=== PATIENT | male | born 2000 | race Hispanic/Latino ===

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

== ENCOUNTER 2021-05-06 11:42 | Inpatient (IN) | payer OTHER ==
[~2021-05-06] VITALS: Ht 172.7 cm; Wt 61.6 kg
[2021-05-06 12:36] LABS: HEMATOCRIT 44.2 % (42.0-52.0); HEMOGLOBIN 15.1 g/dl (13.5-17.5); MEAN CORPUSCULAR HEMOGLOBIN 29.7 pg (27.0-33.0); MEAN CORPUSCULAR HGB CONC 34.2 g/dl (32.0-36.5); PLATELET COUNT, AUTOMATED 253 10^3/uL (150-450); RED BLOOD COUNT 5.08 10^6/uL (4.30-6.10); WHITE BLOOD COUNT 6.2 10^3/uL (4.0-10.0)
[2021-05-06 13:24] LABS: RSV AMPLIFICATION NEGATIVE (NEGATIVE)
[2021-05-06 13:25] LABS: ACETAMINOPHEN LEVEL < 2.0 UG/ML (10.0-30.0); ALBUMIN 4.3 GM/DL (3.2-5.2); ALT/SGPT 22 U/L (12-78); BILIRUBIN,DIRECT 0.3 MG/DL (0.0-0.2); BILIRUBIN,TOTAL 1.3 MG/DL (0.2-1.0); BLOOD UREA NITROGEN 12 MG/DL (7-18); CALCIUM LEVEL 9.3 MG/DL (8.5-10.1); CARBON DIOXIDE LEVEL 28 MEQ/L (21-32); CHLORIDE LEVEL 104 MEQ/L (98-107); CREATININE FOR GFR 0.83 MG/DL (0.70-1.30); ETHYL ALCOHOL (ETHANOL) 0.004 % (0.000-0.010); GLUCOSE, FASTING 86 MG/DL (70-100); SALICYLATE LEVEL < 1.7 MG/DL (5.0-30.0); SODIUM LEVEL 139 MEQ/L (136-145); THYROID STIMULATING HORMONE 0.635 uIU/ML (0.463-3.98); TOTAL PROTEIN 7.6 GM/DL (6.4-8.2)
[2021-05-06 17:56] LABS: AMPHETAMINES LEVEL URINE NEGATIVE (NEGATIVE); BARBITURATES URINE NEGATIVE (NEGATIVE); BENZODIAZEPINES URINE NEGATIVE (NEGATIVE); CANNABINOIDS URINE POSITIVE (NEGATIVE); COCAINE METABOLITE URINE NEGATIVE (NEGATIVE); METHADONE URINE NEGATIVE (NEGATIVE); OPIATES URINE NEGATIVE (NEGATIVE); PHENCYCLIDINE URINE NEGATIVE (NEGATIVE)
[2021-05-06] MEDS ORDERED: MAALOX 30 ML SUSP *UDC PO PRN (18:00)
[2021-05-06] MEDS ORDERED: NICOTINE 21MG/24HR 1 EA TRANSDERMAL TD PRN (18:00)
[2021-05-06] MEDS ORDERED: OLANZapine ORAL DISINTEGRATING TAB 5MG PO PRN (18:00)
[2021-05-06] MEDS ORDERED: ACETAMINOPHEN TAB 650MG DOSE (2X325MG) PO PRN (18:00)
[2021-05-06] MEDS ORDERED: MOM 30ML SUSPENSION UDC PO PRN (18:00)
[2021-05-06] MEDS ORDERED: HOME MED LIST COMPLETE! XX SCH (18:30)
[2021-05-06 20:15] VITALS: BP 146/87
[2021-05-06] MEDS: traZODone 50 MG TAB PO PRN (21:39)
[2021-05-06] MEDS: risperiDONE 1 MG TAB PO SCH (21:39)
[2021-05-07 06:28] VITALS: BP 135/68
[2021-05-07] MEDS: SERTRALINE HCL 50 MG TAB PO SCH (09:10)
[2021-05-07 16:14] VITALS: BP 136/66
[2021-05-07] MEDS: risperiDONE 1 MG TAB PO SCH (20:46)
[2021-05-08 06:37] VITALS: BP 117/58
[2021-05-08 08:07] LABS: CHOLESTEROL RISK RATIO 3.129 (<5)
[2021-05-08] MEDS: SERTRALINE HCL 50 MG TAB PO SCH (08:26)
[2021-05-08 17:49] VITALS: BP 133/86
[2021-05-08] MEDS: risperiDONE 1 MG TAB PO SCH (20:01)
[2021-05-09 06:49] VITALS: BP 124/64
[2021-05-09] MEDS: SERTRALINE HCL 50 MG TAB PO SCH (08:53)
[2021-05-09 17:49] VITALS: BP 148/84
[2021-05-09] MEDS: traZODone 50 MG TAB PO PRN (20:56)
[2021-05-09] MEDS: risperiDONE 1 MG TAB PO SCH (20:56)
[2021-05-10 07:02] VITALS: BP 133/61
[2021-05-10] MEDS: SERTRALINE HCL 50 MG TAB PO SCH (08:49)
[2021-05-10] MEDS ORDERED: TRAZ-252 PO (11:15)
[2021-05-10] MEDS ORDERED: SERT50TA29 PO (11:15)
[2021-05-10] MEDS ORDERED: RISP-8 PO (11:15)
[2021-05-10] MEDS ORDERED: NICO21PAT TD (11:15)
== END 2021-05-10 15:17 | disposition home or self-care (01) | DRG 885 ==
LOC: M ED 11:42 → M ED INP 18:00 → M PSY 20:01
PROVIDERS: ADMIT Student in an Organized Health Care Education/Training Program; ATTEND Student in an Organized Health Care Education/Training Program
DX: F33.1 Major depressive disorder, recurrent, moderate (principal); R45.851 Suicidal ideations; F12.90 Cannabis use, unspecified, uncomplicated; F60.89 Other specific personality disorders; Z91.51 Personal history of suicidal behavior; Z63.0 Problems in relationship with spouse or partner; Z56.6 Other physical and mental strain related to work; Z20.822 Contact with and (suspected) exposure to COVID-19

== ENCOUNTER 2021-05-23 14:34 | Emergency (ER) | payer OTHER ==
[~2021-05-23] VITALS: Ht 172.7 cm; Wt 63.6 kg
[~2021-05-23 14:34] MED LIST changes: +NICO21PAT TD
[2021-05-23 16:47] LABS: HEMATOCRIT 43.3 % (42.0-52.0); HEMOGLOBIN 14.6 g/dl (13.5-17.5); MEAN CORPUSCULAR HEMOGLOBIN 30.2 pg (27.0-33.0); MEAN CORPUSCULAR HGB CONC 33.7 g/dl (32.0-36.5); MEAN CORPUSCULAR VOLUME 89.6 fl (80.0-96.0); PLATELET COUNT, AUTOMATED 244 10^3/uL (150-450); RED BLOOD COUNT 4.83 10^6/uL (4.30-6.10); WHITE BLOOD COUNT 7.5 10^3/uL (4.0-10.0)
[2021-05-23 16:54] LABS: AMPHETAMINES LEVEL URINE NEGATIVE (NEGATIVE); BARBITURATES URINE NEGATIVE (NEGATIVE); BENZODIAZEPINES URINE NEGATIVE (NEGATIVE); CANNABINOIDS URINE POSITIVE (NEGATIVE); COCAINE METABOLITE URINE NEGATIVE (NEGATIVE); METHADONE URINE NEGATIVE (NEGATIVE); OPIATES URINE NEGATIVE (NEGATIVE); PHENCYCLIDINE URINE NEGATIVE (NEGATIVE)
[2021-05-23 17:04] LABS: RSV AMPLIFICATION NEGATIVE (NEGATIVE)
[2021-05-23 17:08] LABS: ACETAMINOPHEN LEVEL < 2.0 UG/ML (10.0-30.0); ALBUMIN 4.5 GM/DL (3.2-5.2); ALT/SGPT 25 U/L (12-78); BILIRUBIN,DIRECT 0.2 MG/DL (0.0-0.2); BILIRUBIN,TOTAL 0.8 MG/DL (0.2-1.0); BLOOD UREA NITROGEN 10 MG/DL (7-18); CARBON DIOXIDE LEVEL 30 MEQ/L (21-32); CHLORIDE LEVEL 105 MEQ/L (98-107); CREATININE FOR GFR 0.89 MG/DL (0.70-1.30); ETHYL ALCOHOL (ETHANOL) < 0.003 % (0.000-0.010); GLUCOSE, FASTING 89 MG/DL (70-100); POTASSIUM SERUM 3.6 MEQ/L (3.5-5.1); SALICYLATE LEVEL < 1.7 MG/DL (5.0-30.0); SODIUM LEVEL 139 MEQ/L (136-145); THYROID STIMULATING HORMONE 0.796 uIU/ML (0.463-3.98); TOTAL PROTEIN 7.8 GM/DL (6.4-8.2)
[2021-05-23] MEDS ORDERED: ACETAMINOPHEN TAB 650MG DOSE (2X325MG) PO ONE (17:15)
[2021-05-23] MEDS ORDERED: SERT50TA29 PO (19:25)
[2021-05-23] MEDS ORDERED: RISP-8 PO (19:25)
[2021-05-23] MEDS ORDERED: TRAZ-186 PO (19:25)
[2021-05-23] MEDS ORDERED: HOME MED LIST COMPLETE! XX SCH (19:30)
[2021-05-23] MEDS ORDERED: traZODone 50 MG TAB PO ONE (20:50)
[2021-05-23] MEDS ORDERED: risperiDONE 1 MG TAB PO ONE (20:50)
[2021-05-24] MEDS ORDERED: SERTRALINE HCL 50 MG TAB PO SCH (09:00)
[2021-05-24 18:28] VITALS: BP 137/69
[2021-05-24] MEDS ORDERED: traZODone 50 MG TAB PO SCH (21:00)
[2021-05-24] MEDS ORDERED: risperiDONE 1 MG TAB PO SCH (21:00)
[2021-05-25] MEDS ORDERED: SERTRALINE HCL 50 MG TAB PO SCH (09:00)
== END 2021-05-24 18:48 ==
LOC: M ED 14:34
DX: R45.851 Suicidal ideations (principal); F41.9 Anxiety disorder, unspecified; Z91.51 Personal history of suicidal behavior; Z79.899 Other long term (current) drug therapy

== ENCOUNTER 2021-07-17 15:38 | Emergency (ER) | payer OTHER ==
[~2021-07-17] VITALS: Ht 172.7 cm; Wt 61.4 kg
[2021-07-17 16:45] LABS: HEMATOCRIT 47.2 % (42.0-52.0); HEMOGLOBIN 16.1 g/dl (13.5-17.5); MEAN CORPUSCULAR HEMOGLOBIN 29.9 pg (27.0-33.0); MEAN CORPUSCULAR HGB CONC 34.1 g/dl (32.0-36.5); MEAN CORPUSCULAR VOLUME 87.7 fl (80.0-96.0); PLATELET COUNT, AUTOMATED 245 10^3/uL (150-450); RED BLOOD COUNT 5.38 10^6/uL (4.30-6.10); WHITE BLOOD COUNT 9.4 10^3/uL (4.0-10.0)
[2021-07-17 17:11] LABS: AMPHETAMINES LEVEL URINE NEGATIVE (NEGATIVE); BARBITURATES URINE NEGATIVE (NEGATIVE); BENZODIAZEPINES URINE NEGATIVE (NEGATIVE); CANNABINOIDS URINE POSITIVE (NEGATIVE); COCAINE METABOLITE URINE NEGATIVE (NEGATIVE); METHADONE URINE NEGATIVE (NEGATIVE); OPIATES URINE NEGATIVE (NEGATIVE); PHENCYCLIDINE URINE NEGATIVE (NEGATIVE)
[2021-07-17 17:17] LABS: ACETAMINOPHEN LEVEL < 2.0 UG/ML (10.0-30.0); ALBUMIN 4.5 GM/DL (3.2-5.2); ALT/SGPT 16 U/L (12-78); BILIRUBIN,DIRECT 0.2 MG/DL (0.0-0.2); BILIRUBIN,TOTAL 0.7 MG/DL (0.2-1.0); BLOOD UREA NITROGEN 16 MG/DL (7-18); CALCIUM LEVEL 9.8 MG/DL (8.5-10.1); CARBON DIOXIDE LEVEL 29 MEQ/L (21-32); CHLORIDE LEVEL 105 MEQ/L (98-107); CREATININE FOR GFR 0.98 MG/DL (0.70-1.30); ETHYL ALCOHOL (ETHANOL) < 0.003 % (0.000-0.010); GLUCOSE, FASTING 91 MG/DL (70-100); POTASSIUM SERUM 4.1 MEQ/L (3.5-5.1); SALICYLATE LEVEL < 1.7 MG/DL (5.0-30.0); SODIUM LEVEL 142 MEQ/L (136-145); THYROID STIMULATING HORMONE 0.737 uIU/ML (0.463-3.98); TOTAL PROTEIN 8.4 GM/DL (6.4-8.2)
[2021-07-17 17:25] LABS: RSV AMPLIFICATION NEGATIVE (NEGATIVE)
[2021-07-18 16:43] VITALS: BP 123/68
== END 2021-07-18 16:49 ==
LOC: M ED 15:38
DX: R45.851 Suicidal ideations (principal); F33.9 Major depressive disorder, recurrent, unspecified

== ENCOUNTER 2021-10-06 15:58 | Emergency (ER) | payer OTHER ==
[~2021-10-06] VITALS: Ht 172.7 cm; Wt 63.6 kg
[2021-10-06 17:28] LABS: MEAN CORPUSCULAR HEMOGLOBIN 30.5 pg (27.0-33.0); MEAN CORPUSCULAR HGB CONC 34.1 g/dl (32.0-36.5); MEAN CORPUSCULAR VOLUME 89.6 fl (80.0-96.0); PLATELET COUNT, AUTOMATED 238 10^3/uL (150-450); RED BLOOD COUNT 4.91 10^6/uL (4.30-6.10); WHITE BLOOD COUNT 6.5 10^3/uL (4.0-10.0)
[2021-10-06 17:37] LABS: RSV AMPLIFICATION NEGATIVE (NEGATIVE)
[2021-10-06 17:55] LABS: AMPHETAMINES LEVEL URINE NEGATIVE (NEGATIVE); BARBITURATES URINE NEGATIVE (NEGATIVE); BENZODIAZEPINES URINE NEGATIVE (NEGATIVE); CANNABINOIDS URINE NEGATIVE (NEGATIVE); COCAINE METABOLITE URINE NEGATIVE (NEGATIVE); METHADONE URINE NEGATIVE (NEGATIVE); OPIATES URINE NEGATIVE (NEGATIVE); PHENCYCLIDINE URINE NEGATIVE (NEGATIVE)
[2021-10-06 18:07] LABS: ACETAMINOPHEN LEVEL < 2.0 UG/ML (10.0-30.0); ALBUMIN 4.1 GM/DL (3.2-5.2); ALT/SGPT 22 U/L (12-78); BILIRUBIN,DIRECT 0.2 MG/DL (0.0-0.2); BILIRUBIN,TOTAL 0.5 MG/DL (0.2-1.0); BLOOD UREA NITROGEN 10 MG/DL (7-18); CALCIUM LEVEL 9.5 MG/DL (8.5-10.1); CARBON DIOXIDE LEVEL 29 MEQ/L (21-32); CHLORIDE LEVEL 104 MEQ/L (98-107); ETHYL ALCOHOL (ETHANOL) < 0.003 % (0.000-0.010); GLUCOSE, FASTING 94 MG/DL (70-100); POTASSIUM SERUM 4.1 MEQ/L (3.5-5.1); SALICYLATE LEVEL < 1.7 MG/DL (5.0-30.0); SODIUM LEVEL 139 MEQ/L (136-145); TOTAL PROTEIN 7.9 GM/DL (6.4-8.2)
[2021-10-06] MEDS ORDERED: HYDR-3363 PO (19:42)
[2021-10-06] MEDS ORDERED: TRAZ-186 PO (19:42)
[2021-10-06] MEDS ORDERED: COMMENTS (19:42)
[2021-10-06] MEDS ORDERED: traZODone 50 MG TAB PO ONE (22:05)
[2021-10-07] MEDS ORDERED: patient comment (08:51)
[2021-10-07] MEDS ORDERED: HOME MED LIST COMPLETE! XX SCH (08:55)
[2021-10-07 18:38] VITALS: BP 129/86
== END 2021-10-07 18:55 | disposition home or self-care (01) ==
LOC: M ED 15:58
DX: R45.851 Suicidal ideations (principal); F32.A Depression, unspecified; F41.9 Anxiety disorder, unspecified; F25.9 Schizoaffective disorder, unspecified